=== PATIENT | female | born 1945 | race Caucasian/White ===

== ENCOUNTER 2016-03-01 10:07 | Day surgery (SDC) | payer MEDICARE ==
[~2016-03-01] VITALS: Ht 166.4 cm; Wt 82.1 kg
[2016-03-01] VITALS (12 sets, daily range): BP systolic 128–178; BP diastolic 61–87; PULSE 68–80; RESP 10–16; O2SAT 93–100
--- NOTE | 2016-03-01 06:47 | PCM.HPANE ---
Patient Data Surgeon Admitting Provider: Attending Provider:Juan Bernardo MD Primary Care Physician:Gladys Carranza MD Other Provider:[facility] Reason for Visit Left Breast Cancer Ht/WT & BMI Height (Feet): 5 Height (Inches): 5.5 Weight (Kilograms): 82.1 Body Mass Index 29.00 Allergies Coded Allergies: No Known Allergies (Verified Allergy, Unknown, 02/25/16) Past Anesthesia History Anesthesia History: Denies:: Anesthesia Reactions, Malignant Hyperthermia Diabetes History Hx Diabetes?: Yes Type of Diabetes: Type II Glycemic Control: Oral Medication MRSA MRSA: No Medications Hypertension Medication: Yes (LOSARTAN) Reported Medications Lovastatin 40 Mg [id number] Mg PO HS #30 TABLET Ref 0 02/25/16 Levothyroxine 100 Mcg [id number] Mcg PO DAILY For Thyroid Replacement Ref 0 02/25/16 Metformin 500 Mg Glpxtx757 Mg PO BID Ref 0 02/09/16 Losartan Potassium 50 Mg Szxrdg44 Mg PO DAILY 02/09/16 Tolterodine Tartrate 2 Mg Tablet1 Mg PO BID 02/09/16 Omeprazole 20 Mg Capsule.dr40 Mg PO BID Ref 0 02/09/16 Discontinued Reported Medications Cholecalciferol (Vitamin D3) (Vitamin D3)2,000 Unit Tablet2,000 Unit PO DAILY 02/09/16 Ubidecarenone/Vit E Acetate (Co Q-10 100 mg Softgel)1 Each Capsule1 Each PO 02/09/16 Naproxen 500 Mg Cwl298 Mg PO BID PRN For Pain Ref 0 02/09/16 MULTIVITAMIN-Expunged Drug, Do Not Renew! (MULTI VITAMIN -Expunged Drug, Do Not Renew!)1 Each Tablet1 Each PO 07/12/12 Lovastatin-Expunged Drug, Do Not Renew! 10 Mg Tidyod04 Mg PO 07/12/12 Discontinued Scripts Levothyroxine-Expunged Drug, Do Not Renew! (Synthroid-Expunged Drug, Do Not Renew!)100 Mcg Qlxuol892 Mcg PO DAILYAC 30 Days Prov:Valentino Ruff MD 07/13/12 History History of ENT Problems?: Yes HEENT History: Positive for:: Hearing Problem Hx of Heart Problems?: Yes Cardiovascular History: Positive for:: Hypertension (HYPERLIPIDEMIA) Denies:: Cardiac Surgery Chest Pain Congestive Heart Failure Heart Murmur (ECHO 06/2012 EF 60-65%) Irregular Heartbeat Pacemaker Thrombophlebitis Valvular Heart Disease Hx of Respiratory Problem?: Yes Respiratory History: Positive for:: Cough Dyspnea (INTERMITTANT RHODES) Use of C-PAP Machine (MATTHIAS+ ?CPAP?) Denies:: Asthma COPD Chest Surgery Emphysema Hemoptysis Pneumonia Tuberculosis Hx Neurologic Problems?: Yes Neurological History: Denies:: Alzheimer's Disease CVA Dementia Dizziness Headaches Parkinson's Disease Seizures Hx of GI Problems?: Yes Gastrointestinal History: Positive for:: Gastroesphageal Reflux Rectal Bleeding (S/P HEMORRHOIDECTOMY) Other GI Pertinent History: S/P APPY Hx of Problems?: Yes Female Hx: Positive for:: Problems with Breasts? (S/P LT BREAST BX LT BREAST CA=CURRENT PROBLEM) Denies:: Currently Endometriosis Pelvic Inflammatory Skin History: Denies:: History Skin Disorders? Pressure Ulcers Hx Musculoskeletal Problems?: Yes Musculoskeletal History: Positive for:: Musculoskeletal Trauma (S/P LT SHOULDER RPR) Osteoarthritis Hx of Psycho/Social Problems?: No Hx Surgeries?: Yes (LT BREAST BX,HYST,EXC HEEL EXOSTOSIS,BILAT CTR'S,SHOULDER RPR,APPY,HEMORRHO) Hx Any Other Health Problems?: Yes Other History: Positive for:: Cancer (LT BREAST) Hospitalization Thyroid Disease (hypothyroid) Denies:: Endocrine Disease History Blood Transfusions: Denies:: Blood Transfusions Hx Diabetes: Yes Hx Alcohol Use: Yes (OCCAS)Hx Substance Use: No Smoking Status: Never Smoker Have You Smoked inLast 12 mo: No Stop/Bang Treated for Sleep Apnea?: Yes Do You Have a CPAP Machine?: Yes S-Snoring: Do You Snore Loudly: No T-Tired: feel tired, fatigued: Yes O-Obsered: Observed not breath: Yes P-Blood Pressure: treated: Yes B- Body Mass Index > 35 kg/m2: No A- Age over 50: Yes N- Neck Large Circumference: No G- Gender Male: No MATTHIAS Total Score: 4 MATTHIAS Risk Assessment: High Risk, =/>3 Yes MATTHIAS Category 4 OutPt Procedure: Yes Risk Assessment Category Category 1A: Patient has history of documented sleep apnea, and HAS NOT received any narcotic, sedative or anesthesia administration during this stay. Category 1B: Patient has history of documented sleep apnea, and HAS received any narcotic , sedative or anesthesia administration during this stay Category 2: Patient has SUSPECTED Obstructive Sleep Apnea, and HAS received any narcotic , sedative or anesthesia administration during this stay. Category 3: Patient has SUSPECTED Obstructive Sleep Apnea and HAS NOT received narcotic, sedative or anesthesia administration during this stay. Category 4: Outpatient in Procedural Areas with known sleep apnea or who screen positive for High Risk via the STOP/BANG questionnaire. Plan Impression Patient chart reviewed, patient interviewed and anesthestic plan with risks, benefits, and alternatives discussed, and informed consent obtained. Usha Coffman MD Mar 01, 2016 06:47
[~2016-03-01 10:07] MED LIST: CeFAZolin Inj 2 GM in IV Premix 1 EACH IV SCH; LEVO100T6 PO; LOSA50TA37 PO; LOVA40TA PO; Lactated Ringer's 1,000 ML IV ONE; METF500T4 PO; OMEP20CA11 PO; TOLT2TAB5 PO
[2016-03-01] MEDS ORDERED: Propofol 10,000 mCg/mL 20 mL Inj ONE (10:08)
[2016-03-01] MEDS ORDERED: Dexamethasone 4 mg/mL Inj ONE (10:08)
[2016-03-01] MEDS ORDERED: fentaNYL-PF 50 mCg/mL 2 mL Inj ONE (10:08)
[2016-03-01] MEDS ORDERED: Ondansetron 2 mg/mL 2 mL Inj ONE (10:08)
[2016-03-01] MEDS ORDERED: Lactated Ringer's 1,000 ML IV ONE (10:33)
[2016-03-01] MEDS ORDERED: Bupivacaine-MPF 0.5% W/EPI 30 mL Inj INFILTRATE ONE (12:15)
[2016-03-01] MEDS ORDERED: Lactated Ringer's 500 ML IV PRN (12:59)
[2016-03-01] MEDS ORDERED: Lactated Ringer's 1,000 ML IV SCH (12:59)
[2016-03-01] MEDS ORDERED: fentaNYL-PF 50 mCg/mL 2 mL Inj IVPUSH PRN (13:00)
[2016-03-01] MEDS ORDERED: Atropine 0.4 mg/mL Inj IVPUSH PRN (13:00)
[2016-03-01] MEDS ORDERED: MetoCLOpramide 5 mg/mL 2 mL Inj IVPUSH PRN (13:00)
[2016-03-01] MEDS ORDERED: Ondansetron 2 mg/mL 2 mL Inj IVPUSH PRN (13:00)
[2016-03-01] MEDS ORDERED: hydrALAZINE 20 mg/mL Inj IVPUSH PRN (13:00)
[2016-03-01] MEDS ORDERED: Phenylephrine 10,000 mCg/mL Inj IVPUSH PRN (13:00)
[2016-03-01] MEDS ORDERED: Labetalol 5 mg/mL 4 mL Inj IV PRN (13:00)
[2016-03-01] MEDS ORDERED: EPHEDrine Sulfate 50 mg/mL Inj IVPUSH PRN (13:00)
[2016-03-01] MEDS ORDERED: Dexamethasone 4 mg/mL Inj IVPUSH PRN (13:00)
--- NOTE | 2016-03-01 13:29 | PCM.DISURG ---
Surgical Discharge Instruction Date of Service Mar 01, 2016 Dates of Hospitalization Date of Hospital Admission Providers Admitting Physician: Primary Care Physician: Gladys Carranza MD Attending Physician: Juan Bernardo MD Discharge Diagnosis Discharge Diagnosis Left breast cancer Diet Discharge Diet: No restrictions Activity Discharge Activity-General: No restrictions, Activity as pain allows Dressing and Incisional Care Dressing Instructions: Dermabond will peel off gradually Hygiene: May shower Follow Up Plan Follow Up Plan With Dr. Bernardo in 10-14 days Call your provider for: Fever (over 101.5), Discharge @ incision, pus discharge Juan Bernardo MD Mar 01, 2016 13:29
[2016-03-01] MEDS ORDERED: HYDROcodone-APAP 5-325 mg Tablet PO PRN (13:30)
--- NOTE | 2016-03-01 13:37 | PCM.SURGOP ---
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 Core needle biopsy demonstrated invasive ductal carcinoma, ER/MO positive, QCF-5-[id number]. After discussion of risks and benefits, she agreed to proceed with wire localized left partial mastectomy, left axillary sentinel lymph node biopsy. Findings: The lesion was successfully localized with the wire. There is a single sentinel lymph node, with an ex vivo gamma count of 148, compared to a background count of 5 in the left axilla. Procedure Details Preoperatively, the patient underwent nuclear medicine radiotracer injection into the left breast periareolar region. She then went to the [facility] where she underwent wire localization. She was brought to the operating room, and underwent smooth induction of general anesthesia. There was an adequate radiotracer signal in the left axilla, some blue dye was not utilized. She was placed in the supine position, and was prepped and draped in wide sterile fashion. A procedural pause was performed according to the SCOAP checklist, and all were found to be in agreement. A radial left breast incision was made in the left lateral breast, extending from the areolar border toward the wire, which was brought in from an extreme lateral position. Dissection was carried down through the superficial breast parenchyma with electrocautery. The wire was identified laterally, and delivered into the wound. Using the wire as a guide, dissection was carried out circumferentially with electrocautery as the breast tissue was dissected free. Posteriorly, the margin of dissection was the pectoralis muscle, which was not resected. The tissue was dissected free, oriented with suture. A specimen radiograph confirmed that the mammographic lesion with the clip had been successfully localized. It was sent for permanent pathology, labeled as left breast tissue. Separate shave margins were obtained with electrocautery from the medial aspect of the cavity, and the inferior aspect of the cavity. The specimens were oriented with suture, and sent for permanent pathology, labeled as left breast medial margin, and left breast inferior margin respectively. The cavity was marked with hemoclips circumferentially. The breast parenchyma was closed with an interrupted 3-0 Vicryl suture. The skin incision was closed with a running 4-0 Vicryl subcuticular stitch. A curvilinear incision was made at the inferior border of the hairbearing skin in the left axilla. Dissection was carried down with electrocautery through the subcutaneous tissue until the axillary fascia was incised. Using the gamma probe as a guide, the area of maximum radiotracer activity was identified, corresponding to a single lymph node. The lymph node was not particularly firm or fixed. It was dissected free from the surrounding tissue with electrocautery. The ex vivo gamma count was 148, and the background gamma count in the left axilla was 5. That tissue was labeled as left axillary sentinel lymph node, and sent for permanent pathology. The axillary fascia was closed with an interrupted 3-0 Vicryl stitch. The skin was closed with a running 4-0 Vicryl subcuticular stitch. Dermabond was applied to both incisions as a dressing. At the end of the case all needle and sponge counts were correct 2. The patient was awakened from anesthesia without difficulty, and taken to the recovery room in satisfactory condition, having tolerated the procedure well. Complications There were no periprocedural complications identified. Surgical Specimen Removed: Yes Specimen sent to Pathology: Yes Surgical Specimen description: Left breast tissue. Medial margin. Inferior margin. Left axillary sentinel lymph node. Anesthetic Plan: GA Grafts, Implants: None Output, Estimated Blood Loss: 30 Blood Administration during urrutia: No Drains: None Catheters: None copies to: Robby Driscoll MD; Gladys Carranza MD; Dustin Rosario MD, Joshua D MD Mar 01, 2016 13:36
[2016-03-01] MEDS: HYDROmorphone 1 mg/mL Inj IVPUSH PRN ×2 (14:12→14:18)
--- NOTE | 2016-03-01 14:53 | DRSVH ---
PROCEDURE: NM SENTINEL NODE INJECTION ONLY, LEFT BREAST RADIOPHARMACEUTICAL: 0.5 mCi Millipore filtered Tc-99m sulfur colloid. INDICATIONS: LEFT BREAST CANCER PROCEDURE: The indications, alternatives, benefits, risks, and complications of the procedure were explained to the patient. Written informed consent was obtained and placed in the chart. The area around the nip ple was prepped and draped in a sterile fashion. Tc-99m sulfur colloid was injected in the outer edg e of the areola in the left breast. No image was obtained. IMPRESSION: Administration of radiotracer into the left breast periareolar region for intra-operativ e sentinel lymph node localization. Dictated by: Sylwia Rothman M.D. on 03/01/2016 at 14:51 Approved by: Sylwia Rothman M.D. on 03/01/2016 at 14:51
--- NOTE | 2016-03-01 15:11 | PCM.ANEP1 ---
Post Anesthesia Phase 1 PACU Phase 1 Assessment Date of Service: Mar 01, 2016 Vital Signs Vital Signs Date Time Temp Pulse Resp B/P Pulse Ox O2 Delivery O2 Flow Rate FiO2 03/01/16 14:28 68 12 128/69 97 Room Air 03/01/16 14:24 36.8 70 12 133/66 96 Room Air 03/01/16 14:10 74 12 131/67 93 Room Air 03/01/16 14:05 76 12 147/68 93 Room Air 03/01/16 14:00 77 13 145/75 93 Room Air 03/01/16 13:52 77 11 151/70 100 Simple Mask 10 03/01/16 13:45 79 11 162/74 100 Simple Mask 10 03/01/16 13:40 37.1 80 10 178/87 100 Simple Mask 10 03/01/16 10:25 36.6 75 16 154/86 98 Room Air Anesthetic Administered: GA Level of Alertness: Awake, talking HENRIQUEZ's with Equal Strength: Yes Pain: No Nausea or Vomiting: No Oxygen Delivery: Simple Mask Usha Coffman MD Mar 01, 2016 15:11
--- NOTE | 2016-03-01 15:42 | PCM.ANEP2 ---
Post Anesthesia Evaluation ASA/CMS Post Anesthesia VS in Patient's Normal Range?: Yes Resp Stable; Airway Patent?: Yes CV Function & Hydration Stable: Yes Mental Status Recovered?: Yes Pain control Satisfactory?: Yes N/V Control Satisfactory?: Yes Usha Coffman MD Mar 01, 2016 15:42
--- NOTE | 2016-03-01 17:42 | DRSVH ---
PROCEDURE: X-RAY BREAST SPECIMEN ([id number]) INDICATIONS: BREAST SPECIMEN TECHNIQUE: Intraoperative film of the breast surgical specimen acquired. COMPARISON: None. FINDINGS: Tip of the localizing wire is present. Also visualized within the specimen is the nearby lesion and biopsy clip being targeted. IMPRESSION: Specimen radiograph contains all items desired. Dictated by: Dustin Cifuentes M.D. on 03/01/2016 at 17:38 Approved by: Dustin Cifuentes M.D. on 03/01/2016 at 17:38
--- NOTE | 2016-03-04 14:50 | PATH ---
SURGICAL PATHOLOGY Attending Physician:Steve Hernandez CASE STATUS: Signed Out PATIENT NAME: TEODORA GUERRERO PID: [id number] : 1945 DATE COLLECTED:03/01/2016 00:00 SPECIMEN: 1: Breast, Simple Mastectomy (lymph nodes submitted separately) 2: Breast Margin 3: Breast Margin 4: [place] Lymph Node CLINICAL HISTORY: LEFT BREAST CANCER 1). LEFT BREAST TISSUE, SHORT STITCH SUPERIOR, LONG STITCH LATERAL 2). LEFT BREAST MEDIAL MARGIN, SHORT STITCH SUPERIOR, LONG STITCH LATERAL 3). LEFT BREAST INFERIOR MARGIN, SHORT STITCH SUPERIOR, LONG STITCH LATERAL 4). LEFT AXILLARY SENTINEL LYMPH NODE FINAL DIAGNOSIS: 1.LEFT BREAST TISSUE, WIRE LOCALIZED PARTIAL MASTECTOMY: INVASIVE CARCINOMA OF THE BREAST. CAP CANCER CASE SUMMARY INVASIVE CARCINOMA OF THE BREAST: PROCEDURE: WIRE LOCALIZED EXCISION. SPECIMEN LATERALITY: LEFT. TUMOR SIZE: 1.1 CM MEASURED ON MICROSCOPIC SLIDE; 1.6 CM ON MAMMOGRAM. HISTOLOGIC TYPE: INVASIVE DUCTAL, NO SPECIAL TYPE. HISTOLOGIC GRADE: PAT HISTOLOGIC SCORE Glandular/Tubular differentiation: Score 2 Nuclear Pleomorphism: Score 2 Mitotic Rate: Score 1 Overall Grade: Grade 1 (5/9) DUCTAL CARCINOMA IN SITU: PRESENT, FOCAL. Size (Extent) of DCIS: FOCAL, AROUND PERIPHERY OF INVASIVE TUMOR, NOT EIC. Architectural patterns: CRIBRIFORM. Nuclear grade: Grade INTERMEDIATE. Necrosis: ABSENT. MARGINS INVASIVE CARCINOMA: ALL MARGINS ARE NEGATIVE FOR INVASIVE CARCINOMA. CLOSEST MARGIN: 0.7 CM, INFERIOR. DUCTAL CARCINOMA IN SITU: ALL MARGINS ARE UNINVOLVED BY DCIS. DISTANCE FROM CLOSEST MARGIN: 0.7 CM, INFERIOR. PATHOLOGIC STAGING: AJCC, 7th ed., 2010 PRIMARY TUMOR: pT1c REGIONAL LYMPH NODES: pN0 (sn) ANCILLARY STUDIES: Biomarkers Performed Previously on Case: [facility] number [id number] 2.LEFT BREAST MEDIAL MARGIN: BENIGN BREAST TISSUE. NEGATIVE FOR ATYPIA, IN SITU, OR INVASIVE CARCINOMA. 3.LEFT BREAST INFERIOR MARGIN. BENIGN BREAST TISSUE. NEGATIVE FOR ATYPIA, IN SITU, OR INVASIVE CARCINOMA. 4.LEFT AXILLARY SENTINEL LYMPH NODE: ONE LYMPH NODE IDENTIFIED, NEGATIVE FOR METASTATIC CARCINOMA. ICD10 code C50.912 GROSS DESCRIPTION: The specimens are received in formalin, labeled with the patient's name, and sublabeled as the following: (1) left breast tissue; (2) left breast tissue medial margin; (3) left breast inferior margin; (4) left axillary sentinel lymph node. (1) The specimen consists of a piece of breast tissue (5.6 cm AP, 2.5 cm SI, 6.8 cm ML) with no overlying skin. The specimen is oriented with 2 black sutures (short-superior, long-lateral). A localization wire is present. The specimen is serially sectioned ML into 13 slices with the medial and lateral resection margins slices #1 and #13 respectively. The breast tissue is fatty and contains a felder-white solid firm irregular mass (2.8 x 1.5 by 1.1 cm) within slices #6-#10. The mass contains a cystic cavity (1.2 x 0.5 x 0.5 cm) containing clear jaylin gelatinous material. The mass is 2.5 cm from the anterior, 1.7 cm from the posterior, 1.5 cm from the superior, 0.7 cm from the inferior, 2.3 cm from the medial, and 1.7 cm from that lateral resection margins. No other nodules, masses or lesions are identified. Ink code: purple-anterior; yellow-posterior; black-superior; orange-inferior; green-medial; blue-lateral. Section code: (1A) medial resection margin, perpendicularly sectioned, access representative; (1B) slice #5, tissue adjacent to mass, trisected AP, middle section submitted; (1C) slice #6, trisected AP, middle section submitted; (1D-1F) slice #7, trisected and submitted AP, entirely submitted; (1G) slice #8, trisected AP, middle section submitted; (1H) slice #9, bisected AP, anterior half submitted; (1I) slice #10, bisected AP, anterior half submitted; (1J) slice #11, tissue adjacent to mass, trisected AP, middle section submitted; (1K) lateral resection margin, perpendicularly sectioned, access representative. (2) The specimen consists of a piece of breast tissue (2.4 cm AP, 8.2 cm SI, 0.4 cm ML) with no overlying skin. The specimen is oriented with 2 black sutures (short-superior, long-posterior). No localization wire is present. The breast tissue is fatty with no nodules, masses or lesions identified. Ink code: purple-anterior; yellow-posterior; black-superior; orange-inferior; green-medial; blue-lateral. Section code: (2A-2C) breast tissue, serially sectioned and submitted SI, access representative. (3) The specimen consists of a piece of breast tissue (2.2 cm AP, 0.7 cm SI, 3.3 cm ML) with no overlying skin. The specimen is oriented with 2 black sutures (short-posterior, lung-lateral). No localization wire is present. The breast tissue is fatty with no nodules, masses or lesions identified. . Ink code: purple-anterior; yellow-posterior; black-superior; orange-inferior; green-medial; blue-lateral. Section code: (3A-3B) breast tissue, serially sectioned and submitted ML. Specimen entirely submitted. (4) The specimen consists of a possible lymph node (2.2 x 1.7 x 0.8 cm). Section code: (4A-4B) one lymph node, serially sectioned. Specimen entirely submitted. Note: Approximate total fixation time in formalin for all specimens-51 hours and 30 minutes calculated using a collection date of March 01, 2016 with a collection time of 1315. 03/02/16 JM MICRO DESCRIPTION: See diagnosis. ICD-9 CODES: CPT CODES: 1: 64419 2: 02462 3: 30251 4: 07914 PROCEDURE/ADDENDA: Addendum SPI Addendum Diagnosis TEST: Oncotype DX Breast Recurrence Score Recurrence Score Result:8 ER Score:11.3 Positive MS Score: 7.4 Positive HER2 Score: 9.8 Negative Addendum Comment Please see [facility] Report [id number] for complete details. Testing performed and interpreted by [facility], [place], [place]. Testing requested by Dr. Coleman, [facility]. Electronically Signed Out Krystyna Martinez MD Electronically Signed Out Krystyna Martinez MD [facility] [address], [place] [address] Technical component performed at [facility], [facility] [address], [place], [address]
[2016-03-11] MEDS ORDERED: ERGO400T3 PO (12:45)
[2016-03-11] MEDS ORDERED: PNV91TAB3 PO (12:45)
== END 2016-03-01 23:59 | disposition home or self-care (01) ==
LOC: SAS 10:07
PROVIDERS: ATTEND Student in an Organized Health Care Education/Training Program
DX: C50.112 Malignant neoplasm of central portion of left female breast (principal); Z17.0 Estrogen receptor positive status [ER+]; E11.9 Type 2 diabetes mellitus without complications; E78.5 Hyperlipidemia, unspecified; E03.9 Hypothyroidism, unspecified; Z79.84 Long term (current) use of oral hypoglycemic drugs
CPT/HCPCS: 19301; 38525; 38792; 76098; A9541; J0690; J1100; J1170; J2250; J2405; J7120